=== PATIENT | male | born 2000 | race Caucasian/White ===

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

== ENCOUNTER 2021-07-05 23:50 | Emergency (ER) | payer OTHER | END 2021-07-06 00:59 | disposition left against medical advice (07) | LOC: ED 23:50 | DX: R07.9 Chest pain, unspecified (principal); F17.200 Nicotine dependence, unspecified, uncomplicated; Z88.1 Allergy status to other antibiotic agents ==

== ENCOUNTER 2021-09-15 18:01 | Emergency (ER) | payer OTHER ==
[~2021-09-15] VITALS: Ht 182.8 cm; Wt 127.9 kg
== END 2021-09-15 23:57 | disposition home or self-care (01) ==
LOC: ED 18:01
DX: B34.9 Viral infection, unspecified (principal); Z20.822 Contact with and (suspected) exposure to COVID-19

== ENCOUNTER 2021-12-18 04:02 | Emergency (ER) | payer OTHER ==
[~2021-12-18] VITALS: Ht 185.4 cm; Wt 117.9 kg
[2021-12-18 04:57] LABS: URINE AMPHETAMINES < 1000 (1000ng/ml); URINE BARBITURATES < 200 (200ng/ml); URINE BENZODIAZEPINES < 200 (200ng/ml); URINE CANNABINOIDS (THC) < 50 (50ng/ml); URINE COCAINE < 300 (300ng/ml); URINE METHADONE < 300 (300ng/ml); URINE OPIATES < 300 (300ng/ml)
[2021-12-18 05:00] LABS: URINE PHENCYCLIDINE < 25 (25ng/ml)
== END 2021-12-18 05:10 | disposition left against medical advice (07) ==
LOC: ED 04:02
PROVIDERS: Emergency Medicine
DX: R11.10 Vomiting, unspecified (principal); Z88.1 Allergy status to other antibiotic agents